=== PATIENT | female | born 1960 | race African-American/Black ===

== ENCOUNTER 2022-08-14 17:39 | Inpatient (IN) | payer OTHER ==
[2022-08-14 18:12] VITALS: BMI 17.7
[2022-08-14] MEDS ORDERED: MAGNESIUM HYDROX 2400MG/30ML ORAL SUSPENSION 30 ML CUP PO PRN (21:05)
[2022-08-14] MEDS ORDERED: IBUPROFEN 400 MG TABLET (FP) PO PRN (21:05)
[2022-08-14] MEDS ORDERED: BISMUTH SUBSALICYLATE 524 MG/30 ML PO PRN (21:05)
[2022-08-14] MEDS ORDERED: NALOXONE HCL (KLOXXADO) 8 MG SPRAY NS PRN (21:05)
[2022-08-14] MEDS ORDERED: P-EPHED 60MG/TRIPROLIDI 2.5MG TABLET PO PRN (21:05)
[2022-08-14] MEDS ORDERED: hydrOXYzine PAMOATE 25 MG CAPSULE (FP) PO PRN (21:05)
[2022-08-14] MEDS ORDERED: ACETAMINOPHEN 325 MG TABLET (FP) PO PRN (21:05)
[2022-08-14] MEDS ORDERED: BENZONATATE 200 MG CAPSULE PO PRN (21:05)
[2022-08-14] MEDS ORDERED: NALOXONE HCL 0.4 MG/ML VIAL IM PRN (21:05)
[2022-08-14] MEDS ORDERED: IBUPROFEN 600 MG TABLET (FP) PO PRN (21:05)
[2022-08-14] MEDS ORDERED: BENZOCAINE/MENTHOL (CHLORASEPTIC ) LOZENGE MM PRN (21:05)
[2022-08-14] MEDS ORDERED: MAG HYDROX/AL HYDROX/SIMETH 30 ML UNIT-DOSE CUP PO PRN (21:05)
[2022-08-14] MEDS ORDERED: guaiFENesin 600 MG TABLET.ER (FP) PO PRN (21:05)
[2022-08-14] MEDS ORDERED: ONDANSETRON *ODT* 4 MG TABLET SL PRN (21:05)
[2022-08-14] MEDS ORDERED: LOPERAMIDE HCL 2 MG CAPSULE PO PRN (21:05)
[2022-08-14] MEDS ORDERED: MELATONIN 5 MG TABLETS PO PRN (21:05)
[2022-08-14] MEDS ORDERED: DICYCLOMINE HCL 10 MG CAPSULE PO PRN (21:05)
[2022-08-14] MEDS ORDERED: POLYETHYLENE GLYCOL (HEALTHYLAX) 3350 17 GM PACKET PO PRN (21:05)
[2022-08-14] MEDS ORDERED: THIAMINE HCL 100 MG TABLET (FP) PO SCH (22:00)
[2022-08-15 09:32] VITALS: BP 137/87; PULSE 108; RESP 16; TEMP 98.8
[2022-08-15] MEDS ORDERED: PRENATAL VITAMINS W/ FOLIC ACID TABLET (FP) PO SCH (10:00)
[2022-08-15 11:42] LABS: HEMATOCRIT 37.3 % (32.4-45.2); HEMOGLOBIN 12.3 GM/dL (10.7-15.3); MCH 27.3 pg (25.7-33.7); MCHC 32.9 g/dl (32.0-36.0); MEAN CELL VOLUME 82.9 fl (80-96); MEAN PLT VOLUME 8.3 fl (7.5-11.1); PLATELET COUNT 380 10^3/uL (134-434); WHITE BLOOD COUNT 6.3 K/mm3 (4.0-10.0)
[2022-08-15 11:49] LABS: ALBUMIN 3.2 g/dl (3.4-5.0); BLOOD UREA NITROGEN 7.3 mg/dL (7-18); CALCIUM 9.2 mg/dL (8.5-10.1)
[2022-08-15 11:52] LABS: CREATININE 0.9 mg/dL (0.55-1.3)
[2022-08-15 11:54] LABS: BILIRUBIN,TOTAL 0.4 mg/dL (0.2-1); TOT PROT 7.6 g/dl (6.4-8.2)
== END 2022-08-15 10:56 | disposition home or self-care (01) | DRG 773 ==
LOC: YASAS 17:39 → Y3N 22:36
PROVIDERS: ADMIT Allergy & Immunology; ATTEND Surgery
PROC: HZ2ZZZZ Detoxification Services for Substance Abuse Treatment (ICD-10-PCS; principal; 2022-08-14)
DX: F11.23 Opioid dependence with withdrawal (principal); F14.10 Cocaine abuse, uncomplicated; F17.210 Nicotine dependence, cigarettes, uncomplicated
CPT/HCPCS: 36415; 80053; 81025; 85027; 86780; 87811; C9803-CS; U0003; U0005